=== PATIENT | male | born 1960 | race Hispanic/Latino ===

== ENCOUNTER 2021-12-20 11:20 | Inpatient (IN) | payer MEDICARE ==
[~2021-12-20] VITALS: Ht 167.6 cm; Wt 99.8 kg
[2021-12-20 12:06] LABS: BASOPHILS # (AUTO) 0.1 (0.0-0.1); BASOPHILS % 0.4 % (0.0-1.0); EOSINOPHILS # (AUTO) 0.2 (0.0-0.4); HEMATOCRIT 39.5 % (38.2-49.6); HEMOGLOBIN 13.4 g/dL (14.0-18.0); LYMPHOCYTES # (AUTO) 1.3 (1.0-3.2); LYMPHOCYTES % 11.4 % (18.0-39.1); MEAN CORPUSCULAR HEMOGLOBIN 32.3 pg (28-32); MEAN CORPUSCULAR HGB CONC 33.9 g/dL (31-35); MEAN CORPUSCULAR VOLUME 95.2 fL (81-99); MONOCYTES # (AUTO) 0.7 (0.2-0.8); MONOCYTES % 6.2 % (4.4-11.3); NEUTROPHILS # (AUTO) 9.2 (2.1-6.9); NEUTROPHILS % 79.6 % (38.7-80.0); PLATELET COUNT 302 x10e3/uL (140-360); RED BLOOD COUNT 4.15 x10e6/uL (4.3-5.7); RED CELL DISTRIBUTION WIDTH 11.9 % (11.7-14.4)
[2021-12-20 12:27] LABS: ALBUMIN 3.6 g/dL (3.5-5.0); ALBUMIN/GLOBULIN RATIO 0.7 (0.8-2.0); ANION GAP 18.3 mmol/L (8-16); CALCIUM 9.6 mg/dL (8.4-10.2); CREATININE, SERUM 2.25 mg/dL (0.72-1.25); POTASSIUM 4.3 mmol/L (3.5-5.1)
[2021-12-20] MEDS ORDERED: LACTATED RINGER'S 1,000 ML INJ ONE (13:15)
[2021-12-20] MEDS ORDERED: SODIUM CHLORIDE 0.9% 50ML 50 ML ONE (13:35)
[2021-12-20] MEDS ORDERED: IOPAMIDOL 370 MG/ML 200 ML INFUS..BTL INJ ONE (13:36)
[2021-12-20] MEDS ORDERED: Morphine 4mg Syringe 4 MG/ML INJ IV PRN (14:15)
[2021-12-20] MEDS ORDERED: ONDANSETRON HCL INJ 2MG/ML 2ML 2 MG/ML VIAL IV PRN (14:15)
[2021-12-20 17:15] VITALS: BP_SYST 113; BP_SYST 126; BP_DIAS 75; BP_DIAS 80
[2021-12-20] MEDS ORDERED: CELECOXIB 200 MG CAP PO PRN (18:15)
[2021-12-20] MEDS ORDERED: PANTOPRAZOLE SOD 40 MG TABEC PO ONE (18:45)
[2021-12-20] MEDS: ENOXAPARIN SODIUM INJ 100 MG/ML SYR SC SCH (20:13)
[2021-12-20] MEDS: DEXTROSE 5%/0.9% SOD CHL 1,000 ML IV SCH (20:13)
[2021-12-20 20:50] VITALS: BP 130/86
[2021-12-20 21:00] VITALS: BP 130/86
[2021-12-21] VITALS (8 sets, daily range): BP systolic 111–137; BP diastolic 67–88
[2021-12-21] MEDS: DEXTROSE 5%/0.9% SOD CHL 1,000 ML IV SCH ×3 (03:59→19:52)
[2021-12-21 05:01] LABS: BASOPHILS # (AUTO) 0.1 (0.0-0.1); BASOPHILS % 0.7 % (0.0-1.0); EOSINOPHILS # (AUTO) 0.3 (0.0-0.4); EOSINOPHILS % 3.6 % (0.0-6.0); HEMOGLOBIN 11.6 g/dL (14.0-18.0); LYMPHOCYTES # (AUTO) 1.5 (1.0-3.2); MEAN CORPUSCULAR HEMOGLOBIN 32.4 pg (28-32); MEAN CORPUSCULAR HGB CONC 33.1 g/dL (31-35); MEAN CORPUSCULAR VOLUME 97.8 fL (81-99); MONOCYTES # (AUTO) 0.8 (0.2-0.8); MONOCYTES % 8.9 % (4.4-11.3); NEUTROPHILS # (AUTO) 5.9 (2.1-6.9); NEUTROPHILS % 68.4 % (38.7-80.0); PLATELET COUNT 233 x10e3/uL (140-360); RED BLOOD COUNT 3.58 x10e6/uL (4.3-5.7); RED CELL DISTRIBUTION WIDTH 11.8 % (11.7-14.4)
[2021-12-21 05:18] LABS: ANION GAP 14.8 mmol/L (8-16); CALCIUM 8.9 mg/dL (8.4-10.2); CREATININE, SERUM 1.51 mg/dL (0.72-1.25); POTASSIUM 3.8 mmol/L (3.5-5.1)
[2021-12-21] MEDS: ENOXAPARIN SODIUM INJ 100 MG/ML SYR SC SCH ×2 (05:53→17:59)
[2021-12-21] MEDS: PANTOPRAZOLE SOD 40 MG TABEC PO SCH (08:22)
[2021-12-21] MEDS: AMLODIPINE BESYLATE 5 MG TAB PO SCH (08:23)
[2021-12-21] MEDS: METOPROLOL TARTRATE 50 MG TAB PO SCH ×2 (08:23→17:59)
[2021-12-21] MEDS: LISINOPRIL 20 MG TAB PO SCH (08:24)
[2021-12-21] MEDS ORDERED: METOPROLOL TARTRATE 50 MG TAB PO SCH (09:00)
[2021-12-21] MEDS: CELECOXIB 200 MG CAP PO SCH (17:58)
[2021-12-21] MEDS ORDERED: ONDANSETRON HCL 4 MG ORAL DISINTEGRATING TAB PO PRN (18:15)
[2021-12-22 01:23] VITALS: BP 130/82
[2021-12-22 05:06] LABS: BASOPHILS % 0.4 % (0.0-1.0); EOSINOPHILS # (AUTO) 0.2 (0.0-0.4); HEMOGLOBIN 11.9 g/dL (14.0-18.0); LYMPHOCYTES # (AUTO) 1.2 (1.0-3.2); LYMPHOCYTES % 16.2 % (18.0-39.1); MEAN CORPUSCULAR HEMOGLOBIN 32.4 pg (28-32); MEAN CORPUSCULAR VOLUME 92.6 fL (81-99); MONOCYTES # (AUTO) 0.6 (0.2-0.8); MONOCYTES % 8.6 % (4.4-11.3); NEUTROPHILS # (AUTO) 5.2 (2.1-6.9); NEUTROPHILS % 71.4 % (38.7-80.0); PLATELET COUNT 233 x10e3/uL (140-360); RED BLOOD COUNT 3.67 x10e6/uL (4.3-5.7); RED CELL DISTRIBUTION WIDTH 11.5 % (11.7-14.4)
[2021-12-22 05:30] LABS: ANION GAP 13.6 mmol/L (8-16); CALCIUM 8.8 mg/dL (8.4-10.2); CREATININE, SERUM 1.17 mg/dL (0.72-1.25); POTASSIUM 3.6 mmol/L (3.5-5.1)
[2021-12-22] MEDS: ENOXAPARIN SODIUM INJ 100 MG/ML SYR SC SCH (05:57)
[2021-12-22 06:05] VITALS: BP 135/83
[2021-12-22] MEDS: DEXTROSE 5%/0.9% SOD CHL 1,000 ML IV SCH (06:07)
[2021-12-22 08:00] VITALS: BP 126/74
[2021-12-22] MEDS: PANTOPRAZOLE SOD 40 MG TABEC PO SCH (08:40)
[2021-12-22] MEDS: CELECOXIB 200 MG CAP PO SCH (08:40)
[2021-12-22] MEDS: METOPROLOL TARTRATE 50 MG TAB PO SCH (08:41)
[2021-12-22] MEDS: AMLODIPINE BESYLATE 5 MG TAB PO SCH (08:41)
[2021-12-22] MEDS: LISINOPRIL 20 MG TAB PO SCH (08:42)
[2021-12-22 12:00] VITALS: BP 133/76
[2021-12-22] MEDS ORDERED: ELIQUIS5 MG PO ×2 (15:23→15:25)
[2021-12-22] MEDS ORDERED: APIXABAN 5 MG TABLET PO SCH ×2 (17:00)
[2021-12-22] MEDS ORDERED: TRAZODONE HCL 50 MG TAB PO PRN (21:00)
== END 2021-12-22 16:49 | disposition home or self-care (01) | DRG 177 ==
LOC: ER 11:48 → ERHOLD 14:11 → IMCU 17:09 → OBSVTOIN 12-21 09:48
PROVIDERS: ADMIT Internal Medicine; ATTEND Internal Medicine
DX: U07.1 COVID-19 (principal); I26.99 Other pulmonary embolism without acute cor pulmonale; I82.4Z2 Acute embolism and thrombosis of unspecified deep veins of left distal lower extremity; I10 Essential (primary) hypertension; E78.5 Hyperlipidemia, unspecified
CPT/HCPCS: 36415; 71045; 71260; 80048; 80053; 84484; 85025; 93005; 93306; 94799; 99284; G0378; J1650; J7042; J7121; Q9967; U0002

== ENCOUNTER 2023-02-01 16:36 | Emergency (ER) | payer MEDICARE ==
[~2023-02-01] VITALS: Ht 167.6 cm; Wt 99.8 kg
[~2023-02-01 16:36] MED LIST: ELIQUIS5 MG PO
[2023-02-01] MEDS ORDERED: NAPROXEN250 MG PO (17:40)
== END 2023-02-01 19:38 | disposition home or self-care (01) ==
LOC: ER 16:41
DX: M79.605 Pain in left leg (principal); Z79.02 Long term (current) use of antithrombotics/antiplatelets; Z86.718 Personal history of other venous thrombosis and embolism
CPT/HCPCS: 93926; 93971; 99283

== ENCOUNTER → 2024-10-23 | Outpatient (REF) | payer MEDICARE ==
[~2024-10-23] MED LIST changes: +AMLODIPINE BESY10 MG PO; +HYDROCHLOROTHIA25 MG PO; +IOPAMIDOL 370 MG/ML 100 ML INFUS..BTL INJ ONE; +METOPROLOL TART25 MG PO; +NAPROXEN250 MG PO; +ZESTRIL10 MG PO
[2024-10-23 09:06] LABS: CREATININE, SERUM 1.22 mg/dL (0.72-1.25)
== END ==
LOC: CT 08:26
PROVIDERS: ATTEND Internal Medicine Hematology & Oncology
DX: R91.8 Other nonspecific abnormal finding of lung field (principal)
CPT/HCPCS: 36415; 71260; 82565; 84520; Q9967